=== PATIENT | female | born 1995 | race Caucasian/White ===

== ENCOUNTER 2018-10-19 23:05 | Emergency (ER) | payer OTHER ==
[~2018-10-19] VITALS: Ht 170.2 cm; Wt 70.0 kg
[2018-10-19 23:12] VITALS: Ht 170.2 cm; Wt 70.0 kg
[2018-10-19] MEDS ORDERED: VITAMIN D31000 UNI2 PO (23:13)
[2018-10-19] MEDS ORDERED: PRENAVITE1 TAB PO (23:13)
[2018-10-19] MEDS ORDERED: FERROUS SULFAT140 MG PO (23:14)
[2018-10-19 23:42] LABS: APPEARANCE CLEAR (CLEAR); BILIRUBIN NEGATIVE (NEGATIVE); COLOR YELLOW (YELLOW); GLUCOSE NEGATIVE (NEGATIVE); KETONE SMALL mg/dL (NEGATIVE); NITRITE NEGATIVE (NEGATIVE); PROTEIN NEGATIVE (NEGATIVE); SPECIFIC GRAVITY 1.005 (1.005-1.020); UROBILINOGEN NORMAL (NORMAL)
[2018-10-19 23:44] LABS: BACTERIA FEW /hpf (NONE SEEN); EPITHELIAL CELLS 0-5 /hpf (0-5); MUCUS <1+ /lpf (NONE SEEN); RED CELLS - URINE NONE SEEN /hpf (0-5); WHITE CELLS - URINE 0-5 /hpf (0-5)
[2018-10-19 23:51] LABS: HEMATOCRIT 34.4 % (36.0-48.0); HEMOGLOBIN 12.2 g/dL (12-16); LYMPHOCYTES 10.4 % (15-50); MCH 29.7 pg (26.0-34.0); MCHC 35.5 g/dL (31.0-37.0); MCV 83.7 fL (80.0-100.0); MEAN PLATELET VOLUME 9.7 fL (7.4-10.4); NEUTROPHILS 83.1 % (40-80); PLATELET COUNT 202 10x3/uL (130-400); RBC 4.11 10x6/uL (4.00-5.40); RDW 12.6 % (11.5-14.5); WBC 9.2 10x3/uL (4.8-10.8)
[2018-10-20 00:04] LABS: ALBUMIN 3.5 g/dL (3.4-5.0); ALKALINE PHOSPHATASE 55 U/L (46-116); ALT (SGPT) 15 U/L (10-68); BILIRUBIN - TOTAL 0.63 mg/dL (0.2-1.3); CALC OSMOLALITY 271 mosm/kg (275-300); CALCIUM 8.5 mg/dL (8.5-10.1); CARBON DIOXIDE 24.2 mmol/L (21.0-32.0); CHLORIDE - SERUM 102 mmol/L (98-107); CREATININE - SERUM 0.5 mg/dL (0.6-1.3); GLUCOSE 111 mg/dL (74-106); POTASSIUM - SERUM 3.3 mmol/L (3.5-5.1); PROTEIN - SERUM 7.2 g/dL (6.4-8.2); SODIUM 136 mmol/L (136-145); UREA NITROGEN 9 mg/dL (7-18); eGFR NON AFRICAN AMERICAN > 90 mL/min (90-120)
[2018-10-20 00:07] LABS: UDS - AMPHET NEGATIVE QUAL (NEGATIVE); UDS - BARB NEGATIVE QUAL (NEGATIVE); UDS - BENZO NEGATIVE QUAL (NEGATIVE); UDS - COCAINE NEGATIVE QUAL (NEGATIVE); UDS - OPIATE NEGATIVE QUAL (NEGATIVE); UDS - PCP NEGATIVE QUAL (NEGATIVE); UDS - THC NEGATIVE QUAL (NEGATIVE)
[2018-10-20 00:32] LABS: HCG - QUANTITATIVE (MATERNAL) 173856 mIU/mL; MAGNESIUM - SERUM 1.5 mg/dL (1.8-2.4)
[2018-10-20 03:57] VITALS: BP 132/76
== END 2018-10-20 03:57 | disposition home or self-care (01) ==
LOC: D.ER 23:05
PROVIDERS: Family Medicine
DX: O26.891 Other specified pregnancy related conditions, first trimester (principal); Z3A.11 11 weeks gestation of pregnancy; R11.10 Vomiting, unspecified; K52.9 Noninfective gastroenteritis and colitis, unspecified

== ENCOUNTER 2019-02-03 23:15 | Outpatient (CLI) | payer SELFPAY ==
[~2019-02-03 23:15] MED LIST: FERROUS SULFAT140 MG PO; PRENAVITE1 TAB PO; VITAMIN D31000 UNI2 PO
[2019-02-04 00:54] LABS: BASOPHILS 0.3 % (0-2); EOSINOPHILS 0.6 % (0-7); HEMATOCRIT 30.2 % (36.0-48.0); HEMOGLOBIN 10.1 g/dL (12-16); IMMATURE GRANULOCYTES 4.9 % (0-5); MCH 28.8 pg (26.0-34.0); MCHC 33.4 g/dL (31.0-37.0); MEAN PLATELET VOLUME 9.6 fL (7.4-10.4); MONOCYTES 7.1 % (2-11); NEUTROPHILS 75.1 % (40-80); PLATELET COUNT 242 10x3/uL (130-400); RBC 3.51 10x6/uL (4.00-5.40); RDW 13.8 % (11.5-14.5); WBC 18.9 10x3/uL (4.8-10.8)
[2019-02-04 00:57] LABS: APPEARANCE HAZY (CLEAR); BILIRUBIN NEGATIVE (NEGATIVE); COLOR YELLOW (YELLOW); GLUCOSE NEGATIVE (NEGATIVE); KETONE NEGATIVE (NEGATIVE); NITRITE NEGATIVE (NEGATIVE); PROTEIN NEGATIVE (NEGATIVE); UROBILINOGEN NORMAL (NORMAL)
[2019-02-04 01:05] LABS: ALBUMIN 2.6 g/dL (3.4-5.0); ALKALINE PHOSPHATASE 94 U/L (46-116); ALT (SGPT) 12 U/L (10-68); AMYLASE - SERUM 39 U/L (25-115); BILIRUBIN - TOTAL 0.24 mg/dL (0.2-1.3); CALC OSMOLALITY 273 mosm/kg (275-300); CALCIUM 8.6 mg/dL (8.5-10.1); CHLORIDE - SERUM 103 mmol/L (98-107); CREATININE - SERUM 0.5 mg/dL (0.6-1.3); GLUCOSE 95 mg/dL (74-106); LIPASE 113 U/L (73-393); POTASSIUM - SERUM 3.9 mmol/L (3.5-5.1); PROTEIN - SERUM 6.6 g/dL (6.4-8.2); SODIUM 138 mmol/L (136-145); UREA NITROGEN 6 mg/dL (7-18); eGFR NON AFRICAN AMERICAN > 90 mL/min (90-120)
[2019-02-04 05:30] LABS: BASOPHILS 0.4 % (0-2); EOSINOPHILS 0.8 % (0-7); HEMATOCRIT 29.5 % (36.0-48.0); IMMATURE GRANULOCYTES 4.6 % (0-5); LYMPHOCYTES 14.2 % (15-50); MCH 29.1 pg (26.0-34.0); MCHC 33.9 g/dL (31.0-37.0); MCV 85.8 fL (80.0-100.0); MEAN PLATELET VOLUME 9.5 fL (7.4-10.4); MONOCYTES 7.3 % (2-11); NEUTROPHILS 72.7 % (40-80); PLATELET COUNT 235 10x3/uL (130-400); RBC 3.44 10x6/uL (4.00-5.40); RDW 13.8 % (11.5-14.5); WBC 17.8 10x3/uL (4.8-10.8)
[2019-02-04 12:38] VITALS: BMI 24.1
[2019-02-04 14:27] LABS: HEMOGLOBIN 10.2 g/dL (12-16); MCH 29.4 pg (26.0-34.0); MCV 86.5 fL (80.0-100.0); MEAN PLATELET VOLUME 9.7 fL (7.4-10.4); PLATELET COUNT 249 10x3/uL (130-400); RBC 3.47 10x6/uL (4.00-5.40); RDW 13.8 % (11.5-14.5); WBC 15.3 10x3/uL (4.8-10.8)
[2019-02-04 14:44] LABS: LYMPHOCYTES 11 % (15-50); MONOCYTES 6 % (2-11); NEUTROPHILS 80 % (40-80); PLATELET ESTIMATE NORMAL
== END 2019-02-04 15:25 | disposition home or self-care (01) ==
LOC: D.LDO 23:15 → D.LD 23:15 → D.LDO 02-04 15:25
PROVIDERS: ATTEND Obstetrics & Gynecology
DX: O26.892 Other specified pregnancy related conditions, second trimester (principal); Z3A.27 27 weeks gestation of pregnancy

== ENCOUNTER → 2019-03-11 13:36 | Outpatient (CLI) | payer OTHER ==
[~2019-03-11 13:36] MED LIST changes: +PROTONIX20 MG PO
== END | disposition home or self-care (01) ==
LOC: D.LDO 13:36
PROVIDERS: ATTEND Obstetrics & Gynecology
DX: O26.899 Other specified pregnancy related conditions, unspecified trimester (principal); Z3A.00 Weeks of gestation of pregnancy not specified

== ENCOUNTER → 2019-03-12 14:38 | Outpatient (CLI) | payer OTHER | END | disposition home or self-care (01) | LOC: D.LDO 14:38 | PROVIDERS: ATTEND Obstetrics & Gynecology | DX: O26.899 Other specified pregnancy related conditions, unspecified trimester (principal) ==

== ENCOUNTER → 2019-03-13 20:16 | Outpatient (CLI) | payer OTHER | END | disposition home or self-care (01) | LOC: D.LDO 20:16 | PROVIDERS: ATTEND Obstetrics & Gynecology | DX: O36.5930 Maternal care for other known or suspected poor fetal growth, third trimester, not applicable or unspecified (principal); Z3A.35 35 weeks gestation of pregnancy ==

== ENCOUNTER 2019-04-03 22:15 | Outpatient (CLI) | payer OTHER ==
[2019-04-03 22:34] LABS: APPEARANCE CLEAR (CLEAR); BILIRUBIN NEGATIVE (NEGATIVE); COLOR YELLOW (YELLOW); GLUCOSE NEGATIVE (NEGATIVE); KETONE NEGATIVE (NEGATIVE); NITRITE NEGATIVE (NEGATIVE); PROTEIN NEGATIVE (NEGATIVE); UROBILINOGEN NORMAL (NORMAL)
== END 2019-04-04 06:40 | disposition home or self-care (01) ==
LOC: D.LDO 22:15 → D.LD 23:01 → D.LDO 04-04 06:40
PROVIDERS: ATTEND Obstetrics & Gynecology
DX: O26.893 Other specified pregnancy related conditions, third trimester (principal); Z3A.36 36 weeks gestation of pregnancy

== ENCOUNTER 2019-04-22 19:58 | Inpatient (IN) | payer OTHER ==
[~2019-04-22] VITALS: Ht 170.2 cm; Wt 86.2 kg
[2019-04-23 05:20] VITALS: BP 135/89; Ht 170.2 cm; Wt 86.2 kg
[2019-04-23 06:16] LABS: HEMATOCRIT 27.4 % (36.0-48.0); HEMOGLOBIN 8.6 g/dL (12-16); MCH 23.3 pg (26.0-34.0); MCHC 31.4 g/dL (31.0-37.0); MCV 74.3 fL (80.0-100.0); MEAN PLATELET VOLUME 10.5 fL (7.4-10.4); RBC 3.69 10x6/uL (4.00-5.40); RDW 17.5 % (11.5-14.5); WBC 12.4 10x3/uL (4.8-10.8)
[2019-04-23 06:25] LABS: APPEARANCE CLEAR (CLEAR); BILIRUBIN NEGATIVE (NEGATIVE); COLOR YELLOW (YELLOW); GLUCOSE NEGATIVE (NEGATIVE); KETONE NEGATIVE (NEGATIVE); NITRITE NEGATIVE (NEGATIVE); PROTEIN NEGATIVE (NEGATIVE); SPECIFIC GRAVITY 1.015 (1.005-1.020); UROBILINOGEN NORMAL (NORMAL)
[2019-04-23 11:36] LABS: ALT (SGPT) 13 U/L (10-68)
[2019-04-23 19:55] VITALS: BP 134/87
--- NOTE | 2019-04-23 19:55 | NUR ---
PT REC'D IN BED AT THIS TIME. SALINE LOCK TO THE LEFT WRIST AT THIS TIME. SITE CLEAR. PITOVIN INFUSING TO THE RT HAND. SITE CLEAR AND PATENT AT THIS TIME . LUNGS CELAR. BS+. FUNDUS FIRM AND MIDLINE U/2 WITH SMALL LOCHIA NOTED AT THIS TIME. SOME LABIAL SWELLING NOTED AT THIS TIME. PT UP TO BATHROOM FOR PERICARE. PT UNABLE TO VOID AT THIS TIME. PT TO WHEELCHAIR AND TRANSFERRED TO ROOM 1274 AT 2030. NO ACUTE DISTRESS NOTED. Kalli DAVIDSON RN
--- NOTE | 2019-04-23 20:37 | NUR ---
PT MEDICATED WITH NORCO FOR PAIN. WILL CONTINUE TO MONITOR. EATING A REGULAR DIET. Kalli DAVIDSON RN
--- NOTE | 2019-04-23 21:45 | NUR ---
PT STATES THAT HYDROCODONE IS STARTING TO WORK , DENIES PAIN AT THIS TIME. Kalli DAVIDSON RN
--- NOTE | 2019-04-23 22:20 | NUR ---
PT UP TO BATHROOM AT THIS TIME AND VOIDED APPROXIMATELY 50 ML OF URINE. WITHOUT DIFFICULTY. PERICARE PROVIDED AT THIS TIME. Kalli DAVIDSON RN
--- NOTE | 2019-04-23 22:39 | NUR ---
PT MEDICATEDWITH MOTRIN AT THIS TIME. Kalli DAVIDSON RN
--- NOTE | 2019-04-24 00:08 | NUR ---
PT ASLEEP AT THIS TIME. DID NOT AWAKEN. RESPS EVEN AND UNLABORED AT THIS TIME. Kalli DAVIDSON RN
--- NOTE | 2019-04-24 02:19 | NUR ---
PT REC'D IN BED AT THIS TIME. HOLDING INFANT. NO DISTRESS NOTED AT THIS TIME. NO COMPLAINTS OF PAIN NOTED. AT THIS TIME. CALL LIGHT IN PT SILVINA. Kalli DAVIDSON RN
--- NOTE | 2019-04-24 02:29 | NUR ---
PT MEDICATED WITH NORCO FOR CRAMPING DUE TO . WILL MONITOR. Kalli DAVIDSON RN
--- NOTE | 2019-04-24 04:30 | NUR ---
PT RESTING DENIES NEEDS AT THIS TIME. Kalli DAVIDSON RN
[2019-04-24 06:41] LABS: BASOPHILS 0.3 % (0-2); EOSINOPHILS 0.6 % (0-7); HEMATOCRIT 26.7 % (36.0-48.0); HEMOGLOBIN 8.6 g/dL (12-16); LYMPHOCYTES 17.2 % (15-50); MCH 24.4 pg (26.0-34.0); MCHC 32.2 g/dL (31.0-37.0); MCV 75.6 fL (80.0-100.0); MEAN PLATELET VOLUME 10.7 fL (7.4-10.4); MONOCYTES 10.5 % (2-11); NEUTROPHILS 69.4 % (40-80); RBC 3.53 10x6/uL (4.00-5.40); RDW 17.9 % (11.5-14.5); WBC 13.8 10x3/uL (4.8-10.8)
[2019-04-24 06:42] LABS: PLATELET COUNT 207 10x3/uL (130-400)
[2019-04-24 07:33] VITALS: BP 139/88
--- NOTE | 2019-04-24 07:33 | NUR ---
SITTING UP IN BED LOOKING AT PHONE. FOB IN ROOM. IN CRIB. SHIFT ASSESSMENT COMPLETED. EXTRA PADS GIVEN. DISCUSSED KIMBERLY-CARE WITH WARM WATER BETADINE, CONTINUE USE OF DERMOPLAST SPRAY, ICE PACK PRN FOR UP TO 24 HOURS. DENIES PAIN A THIS TIME. . RH NEG, INFANT RH POSITIVE WILL NEED RHOGAM. GBS NEG. TDAP LAST RECEIVED 2013 PER [employer]-WILL BE DUE IN 2023 OR DURING NEXT . SIDE RAILS UP X 2, CALL LIGHT IN REACH.
[2019-04-24 08:10] LABS: RAPID PLASMA REAGIN Non Reactive (Non Reactive)
--- NOTE | 2019-04-24 10:11 | NUR ---
RHOGAM GIVEN IM LEFT DELTOID WITHOUT DIFFICULTY. PT AWARE OF PURPOSE OF RHOGAM. [employer] HERE TO SEE . DESIRES TO GO HOME THIS AFTERNOON. NO REQUESTS AT PRESENT.
--- NOTE | 2019-04-24 10:56 | NUR ---
MOTRIN 600 MG GIVEN PO FOR RELIEF OF 4-5/10 PERINEAL ACHING. DENIES NEEDING ANYTHING ELSE. SAYS DR CALHOUN SAID SHE CAN GO HOME THIS AFTERNOON IF BABY DC'D AND IF SHE WANTS TO. FOB IN ROOM. DR MANN HERE TO SEE . TO CALL IF ANYTHING IS NEEDED.
--- NOTE | 2019-04-24 11:21 | NUR ---
SALINE LOCKS REMOVED X 2 WITH TIPS INTACT. DENIES NEEDING ANYTHING. FOB IN ROOM WITH INFANT. TO CALL IF ANYTHING IS NEEDED. INSTRUCTED MAY TAKE SHOWER AND GET DRESSED WHENEVER SHE FEELS LIKE IT.
--- NOTE | 2019-04-24 12:19 | NUR ---
SITTING UP IN BED TALKING TO VISITORS. DENIES PAIN. SAYS THE MOTRIN WORKED. IN ROOM. DENIES NEEDING ANYTHING.
--- NOTE | 2019-04-24 13:59 | NUR ---
CURRENTLY SLEEPING IN HIGH FOWLERS POSITION. FOB AND VISITOR IN ROOM. VISITOR HOLDING . TO CALL IF ANYTHING IS NEEDED.
--- NOTE | 2019-04-24 15:40 | NUR ---
SITTING UP IN BED HOLDING . UNSURE IF PLANNING TO GO HOME TONIGHT OR TOMORROW. PT WILL LET RNS KNOW. NO REQUESTS AT PRESENT. FOB IN ROOM. TO CALL IF ANYTHING IS NEEDED.
--- NOTE | 2019-04-24 17:24 | NUR ---
SITTING UP IN BED. FINISHED DINNER. DENIES PAIN OR NEEDING ANYTHING. WAITING TO SEE WHEN WILL BE DC'D BEFORE MAKING DECISION TO GO HOME TODAY OR TOMORROW. FOB IN ROOM. TO CALL IF ANYTHING IS NEEDED.
--- NOTE | 2019-04-24 18:17 | NUR ---
. REQUESTED MOTRIN FOR 4/10 CRAMPING. MOTRIN 600 MG GIVEN PO. FOB IN ROOM. NO ADDITIONAL REQUESTS. CALL LIGHT IN REACH. TO CALL IF ANYTHING IS NEEDED.
--- NOTE | 2019-04-24 19:28 | NUR ---
DR. CALHOUN CALLS UNIT. NOTIFIED THAT INFANT WILL BE D/C'D HOME TONIGHT AND PT IS REQUESTING TO D/C HOME ALSO. PER DR. CALHOUN PT MAY D/C HOME.
--- NOTE | 2019-04-24 19:31 | NUR ---
BEDSIDE REPORT REC'D FROM Bolivar LOUIS RN. PT SITTING IN HIGH FOWLERS POSITION CONVERSING WITH SPOUSE AND VISITORS. DISCUSSED D/C PLANS WITH PT AND PT VERBALIZES DESIRE TO D/C HOME IF IS RELEASED. WILL PROCEDE WITH D/C. DENIES PAIN AND NEEDS AT THIS TIME. BED IN LOW POSITION WITH UPPER SIDE RAILS RAISED X2. CALL LIGHT AND PHONE WITHIN REACH. WILL CONTINUE TO MONITOR AND ASSIST PRN.
[2019-04-24] MEDS ORDERED: IBUPROFEN600 MG PO (19:54)
[2019-04-24] MEDS ORDERED: HYDROCODON-ACE1 EAC7 PO (19:55)
--- NOTE | 2019-04-24 20:32 | NUR ---
NBN REVIEWING INFANT D/C INSTRUCTIONS WITH PT.
--- NOTE | 2019-04-24 21:15 | NUR ---
DISCHARGE INSTRUCTIONS REVIEWED WITH PT AND SPOUSE. BOTH VERBALIZE UNDERSTANDING AND DENY QUESTIONS. COPY OF INSTRUCTIONS PROVIDED TO PT. MEDS, LAST DOSES TAKEN, FREQUENCY, AND WHEN NEXT DOSES COULD BE TAKEN, VERBALIZES UNDERSTANDING. PRESCRIPTIONS FOR NORCO AND MOTRIN GIVEN TO PT. PFW D/C INSTRUCTIONS REVIEWED AND PROVIDED, DENIES QUESTIONS.
--- NOTE | 2019-04-24 21:20 | NUR ---
PT OFF UNIT IN W/C WITH INFANT CARSEAT IN LAP AND THIS RN IN STABLE CONDITION. CARSEAT PLACED IN CARE PER FOB AND PT ASSISTED INTO BACKSEAT.
== END 2019-04-24 21:20 | disposition home or self-care (01) | DRG 807 ==
LOC: D.LD 04-23 05:12
PROVIDERS: ADMIT Obstetrics & Gynecology; ATTEND Obstetrics & Gynecology
PROC: 10E0XZZ Delivery of Products of Conception, External Approach (ICD-10-PCS; principal; 2019-04-23)
PROC: 0W8NXZZ Division of Female Perineum, External Approach (ICD-10-PCS; 2019-04-23)
DX: O26.893 Other specified pregnancy related conditions, third trimester (principal); Z37.0 Single live birth; Z67.91 Unspecified blood type, Rh negative; Z3A.39 39 weeks gestation of pregnancy